=== PATIENT | male | born 1955 | race African-American/Black ===

== ENCOUNTER 2017-11-09 07:22 | Emergency (ER) | payer MEDICARE ==
--- NOTE | 2017-11-09 07:58 | ER Document Report ---
ED Medical Screen (RME) - General Chief Complaint: Neck Problem Stated Complaint: BACK PAIN Time Seen by Provider: 11/09/17 07:45 Mode of Arrival: Ambulatory Information source: Patient Notes: Patient presents to the emergency department with multiple complaints to include back pain tingling in his left jaw right-sided chest pain and nausea. Reports he has a history of neck pain from past surgery. Reports chest pain is new. Also complains of feeling dizzy. Denies history of cardiac disease but has history of high blood pressure. - Related Data Allergies/Adverse Reactions: aspirin Allergy (Verified 11/09/17 07:26) NSAIDS (Non-Steroidal Anti-Inflamma Adverse Reaction (Verified 11/09/17 07:26) Physical Exam - Vital signs Vitals: Temp Pulse Resp BP Pulse Ox 97.6 F 68 20 137/79 H 100 11/09/17 07:29 11/09/17 07:29 11/09/17 07:29 11/09/17 07:29 11/09/17 07:29 Course - Vital Signs Vital signs: Temp Pulse Resp BP Pulse Ox 97.6 F 68 20 137/79 H 100 11/09/17 07:29 11/09/17 07:29 11/09/17 07:29 11/09/17 07:29 11/09/17 07:29
--- NOTE | 2017-11-09 08:23 | RADIOLOGY REPORT (SQ) ---
EXAM DESCRIPTION: CHEST 2 VIEWS COMPLETED DATE/TIME: 11/09/2017 8:08 am REASON FOR STUDY: chest pain COMPARISON: None. EXAM PARAMETERS: NUMBER OF VIEWS: two views TECHNIQUE: Digital Frontal and Lateral radiographic views of the chest acquired. RADIATION DOSE: NA LIMITATIONS: none FINDINGS: LUNGS AND PLEURA: Lungs are hyperlucent from obstructive disease. There is chronic appearing volume loss and bronchiectasis along the right middle lobe. An old thorac otomy defect is present over the posterior right upper 6th rib. No pleural effusions. No pneumothorax. MEDIASTINUM AND HILAR STRUCTURES: No masses or contour abnormalities. HEART AND VASCULAR STRUCTURES: Heart normal size. No evidence for failure. BONES: Osteopenic without thoracic compression deformity. Lower cervical fusion plate HARDWARE: None in the chest. OTHER: No other significant finding. IMPRESSION: Evidence of prior right thoracotomy. Chronic appearing bronchiectasis in the right middle lobe Obstructive lung disease without acute infiltrates TECHNICAL DOCUMENTATION: JOB ID: [id number] [employer]- All Rights Reserved Reading location - IP/workstation name: [email or web address]
[2017-11-09 08:30] LABS: ABSOLUTE EOSINOPHILS # (AUTO) 0.2 10^3/uL (0.0-0.6); ABSOLUTE MONOCYTES (AUTO) 0.3 10^3/uL (0.1-1.4); ABSOLUTE NEUT (AUTO) 2.2 10^3/uL (1.7-8.2); BASOPHILS % (AUTO) 0.4 % (0-2); EOSINOPHILS % (AUTO) 4.8 % (0-6); HEMATOCRIT 41.6 % (37.9-51.0); HEMOGLOBIN 14.4 g/dL (13.5-17.0); LYMPHOCYTES % (AUTO) 42.3 % (13-45); MEAN CORPUSCULAR HEMOGLOBIN 31.4 pg (27.0-33.4); MEAN CORPUSCULAR HGB CONC 34.5 g/dL (32.0-36.0); MEAN CORPUSCULAR VOLUME 91 fl (80-97); MONOCYTES % (AUTO) 6.8 % (3-13); PLATELET COUNT 268 10^3/uL (150-450); RED BLOOD COUNT 4.56 10^6/uL (4.35-5.55); RED CELL DISTRIBUTION WIDTH 12.7 % (11.5-14.0); SEGMENTED NEUTROPHILS % (AUTO) 45.7 % (42-78); TOTAL CELLS COUNTED % (AUTO) 100 %; WHITE BLOOD COUNT 4.8 10^3/uL (4.0-10.5)
[2017-11-09 08:53] LABS: ALANINE AMINOTRANSFERASE 23 U/L (21-72); ALBUMIN 4.5 g/dL (3.5-5.0); ALKALINE PHOSPHATASE 85 U/L (38-126); ANION GAP 10 (5-19); ASPARTATE AMINO TRANSFERASE 14 U/L (17-59); BILIRUBIN,DIRECT 0.3 mg/dL (0.0-0.4); BILIRUBIN,TOTAL 0.4 mg/dL (0.2-1.3); BLOOD UREA NITROGEN 15 mg/dL (7-20); CALCIUM 10.5 mg/dL (8.4-10.2); CARBON DIOXIDE 31 mmol/L (22-30); CHLORIDE 104 mmol/L (98-107); CREATINE KINASE 99 U/L (55-170); GLUCOSE 109 mg/dL (75-110); SODIUM 145.2 mmol/L (137-145); TOTAL PROTEIN 7.8 g/dL (6.3-8.2)
[2017-11-09 09:00] LABS: CREATINE KINASE MB < 0.22 ng/mL (<4.55); TROPONIN I < 0.012 ng/mL
--- NOTE | 2017-11-09 09:41 | EKG REPORT ---
SEVERITY:- ABNORMAL ECG - SINUS RHYTHM VENTRICULAR PREMATURE COMPLEX NONSPECIFIC INTRAVENTRICULAR CONDUCTION DELAY : Confirmed by: John Hanna 09-Nov-2017 09:39:50
[2017-11-09] MEDS ORDERED: HYDROCODONE/ACETAMINOPHEN 5-325 MG TABLET PO ONE (12:42)
[2017-11-09] MEDS ORDERED: CYCLOBENZAPRINE HCL 10 MG TABLET PO ONE (12:42)
[2017-11-09] MEDS ORDERED: LIDOCAINE 5% (700 MG) TRANSDERMAL ADH..PATCH TP ONE (12:43)
--- NOTE | 2017-11-09 13:55 | ER Document Report ---
ED General - General Chief Complaint: Neck Problem Stated Complaint: BACK PAIN Time Seen by Provider: 11/09/17 07:45 Mode of Arrival: Ambulatory Information source: Patient Notes: Patient presents complaining of chronic neck pain due to a cervical procedure performed 8 years ago. Patient states the pain radiates into the right upper chest area. Patient states he has had this pain chronically for the past 6 months although states that worsened over the past 2-1/2 weeks. Patient denies any fever, nausea or vomiting. Patient does report chronic cough but attributes this to his cough from smoking. - HPI Onset: Other - 6 months Onset/Duration: Worse Quality of pain: Sharp Pain Level: 4 Associated symptoms: Chest pain, Nonproductive cough. denies: Productive cough , Diarrhea, Nausea, Vomiting, Shortness of breath, Sweating Exacerbated by: Denies Relieved by: Denies Similar symptoms previously: Yes Recently seen / treated by doctor: No - Related Data Allergies/Adverse Reactions: aspirin Allergy (Verified 11/09/17 07:26) NSAIDS (Non-Steroidal Anti-Inflamma Adverse Reaction (Verified 11/09/17 07:26) Past Medical History - General Information source: Patient - Social History Smoking Status: Current Every Day Smoker Smoking Education Provided: Yes Frequency of alcohol use: None Drug Abuse: None Occupation: None Lives with: Family Family History: Reviewed & Not Pertinent Patient has suicidal ideation: No Patient has homicidal ideation: No - Past Medical History Cardiac Medical History: Reports: Hx Hypercholesterolemia, Hx Hypertension Renal/ Medical History: Denies: Hx Peritoneal Dialysis Malignancy Medical History: Reports Hx Lung Cancer GI Medical History: Reports: Hx Ulcer Musculoskeltal Medical History: Reports Hx Arthritis - Chronic neck pain Past Surgical History: Reports: Hx Orthopedic Surgery Review of Systems - Review of Systems Constitutional: No symptoms reported. denies: Fever, Recent illness EENT: No symptoms reported Cardiovascular: Chest pain. denies: Dyspnea, Syncope, Dizziness Respiratory: Cough Gastrointestinal: No symptoms reported. denies: Abdominal pain, Nausea, Vomiting Genitourinary: No symptoms reported Male Genitourinary: No symptoms reported Musculoskeletal: Neck pain - Chronic lateral neck tenderness. denies: Back pain Skin: No symptoms reported Hematologic/Lymphatic: No symptoms reported Neurological/Psychological: No symptoms reported. denies: Lost consciousness, Headaches Physical Exam - Vital signs Vitals: Temp Pulse Resp BP Pulse Ox 97.6 F 68 20 137/79 H 100 06/21/18 07:29 11/09/17 07:29 11/09/17 07:29 11/09/17 07:29 11/09/17 07:29 - General General appearance: Appears well, Alert In distress: None - HEENT Head: Normocephalic, Atraumatic Eyes: Normal Conjunctiva: Normal Nasal: Normal Mouth/Lips: Normal Mucous membranes: Normal Pharynx: Normal Neck: Supple, Other - Patient with a lateral paraspinal cervical muscle tenderness with spasm, no midline tenderness step-off or deformity. No: Lymphadenopathy - Respiratory Respiratory status: No respiratory distress Chest status: Tender - Right upper anterior chest wall tenderness, Pain on movement Breath sounds: Normal Chest palpation: Tender. No: Ecchymosis - Cardiovascular Rhythm: Regular Heart sounds: S1 appreciated, S2 appreciated Murmur: No Pulses: Normal: Radial - Back Back: Tender - Bilateral trapezius muscle tenderness. No: Vertebra tenderness - Extremities General upper extremity: Normal inspection, Normal strength General lower extremity: Normal inspection, Normal strength - Neurological Neuro grossly intact: Yes Cognition: Normal Napoleon Coma Scale Eye Opening: Spontaneous Napoleon Coma Scale Verbal: Oriented Napoleon Coma Scale Motor: Obeys Commands Sanjana Coma Scale Total: 15 Motor strength normal: LUE, RUE, LLE, RLE - Psychological Associated symptoms: Normal affect, Normal mood - Skin Skin Temperature: Warm Skin Moisture: Dry Skin Color: Normal Course - Re-evaluation Re-evalutation: 11/09/17 Patient does report some pain improvement after medications as well as topical patch. Patient will be given a refill of his cholesterol blood pressure medications to bridge until he can see a primary care provider as patient did have his empty bottles here with him. Patient advised that he may need to follow-up with pain management for further evaluation of his chronic neck pain. The patient has atypical chest pain as the patient's chest pain is not suggestive of pulmonary embolus, cardiac ischemia, aortic dissection, or other serious etiology. Given the extremely low risk of these diagnoses for the test in evaluation for these possibilities does not appear to be indicated at this time. Patient has been instructed to return if the symptoms worsen or change in any way. - Vital Signs Vital signs: Temp Pulse Resp BP Pulse Ox 97.9 F 52 L 20 142/74 H 100 11/09/17 14:09 11/09/17 14:09 11/09/17 07:29 11/09/17 14:09 11/09/17 14:09 - Laboratory Result Diagrams: 11/09/17 08:15 11/09/17 08:15 Laboratory results interpreted by me: 11/09/17 08:15 Sodium 145.2 H Carbon Dioxide 31 H Calcium 10.5 H AST 14 L 11/09/17 18:54 Labs- Entire Visit 11/09/17 11/09/17 11/09/17 08:15 08:15 08:15 WBC 4.8 RBC 4.56 Hgb 14.4 Hct 41.6 MCV 91 MCH 31.4 MCHC 34.5 RDW 12.7 Plt Count 268 Seg Neutrophils % 45.7 Lymphocytes % 42.3 Monocytes % 6.8 Eosinophils % 4.8 Basophils % 0.4 Absolute Neutrophils 2.2 Absolute Lymphocytes 2.0 Absolute Monocytes 0.3 Absolute Eosinophils 0.2 Absolute Basophils 0.0 Sodium 145.2 H Potassium 4.0 Chloride 104 Carbon Dioxide 31 H Anion Gap 10 BUN 15 Creatinine 1.21 Est GFR ( Amer) > 60 Est GFR (Non-Af Amer) > 60 Glucose 109 Calcium 10.5 H Total Bilirubin 0.4 Direct Bilirubin 0.3 Neonat Total Bilirubin Not Reportable Neonat Direct Bilirubin Not Reportable Neonat Indirect Bili Not Reportable AST 14 L ALT 23 Alkaline Phosphatase 85 Creatine Kinase 99 CK-MB (CK-2) < 0.22 Troponin I < 0.012 Total Protein 7.8 Albumin 4.5 11/09/17 13:05 WBC RBC Hgb Hct MCV MCH MCHC RDW Plt Count Seg Neutrophils % Lymphocytes % Monocytes % Eosinophils % Basophils % Absolute Neutrophils Absolute Lymphocytes Absolute Monocytes Absolute Eosinophils Absolute Basophils Sodium Potassium Chloride Carbon Dioxide Anion Gap BUN Creatinine Est GFR ( Amer) Est GFR (Non-Af Amer) Glucose Calcium Total Bilirubin Direct Bilirubin Neonat Total Bilirubin Neonat Direct Bilirubin Neonat Indirect Bili AST ALT Alkaline Phosphatase Creatine Kinase CK-MB (CK-2) Troponin I < 0.012 Total Protein Albumin - Diagnostic Test Radiology reviewed: Reports reviewed Discharge - Discharge Clinical Impression: Cervical radicular pain, Chronic chest pain, History of hypertension Condition: Stable Disposition: HOME, SELF-CARE Instructions: Chest Pain of Unclear Cause ([facility]), Radiculopathy ([facility]) Additional Instructions: Return immediately for any new or worsening symptoms Followup with your primary care provider, call tomorrow to make a followup appointment Follow-up with a cap blocker for further evaluation, call today for an appointment Prescriptions: Amlodipine Besylate 10 mg PO DAILY #30 tab Atorvastatin Calcium 40 mg PO DAILY #30 tablet Cyclobenzaprine HCl [Flexeril 10 mg Tablet] 10 mg PO TID PRN #15 tablet PRN Reason: Hydrocodone/Acetaminophen [[place] 5-325 mg Tablet] 1 tab PO Q6 PRN #20 tablet PRN Reason: Lisinopril/Hydrochlorothiazide [Lisinopril-Hctz 20-12.5 mg Tab] 1 each PO DAILY #30 tablet Forms: Smoking Cessation Education Referrals: JULIAN VASQUES MD [ACTIVE STAFF] - Follow up as needed [facility] [Provider Group] - Follow up as needed
[2017-11-09 14:12] VITALS: BP 142/74
== END 2017-11-09 14:20 | disposition home or self-care (01) ==
LOC: ER 07:22
DX: R07.9 Chest pain, unspecified (principal); G89.29 Other chronic pain; M54.12 Radiculopathy, cervical region; I10 Essential (primary) hypertension; M54.2 Cervicalgia; R05 Cough; Z98.890 Other specified postprocedural states; F17.200 Nicotine dependence, unspecified, uncomplicated
CPT/HCPCS: 93005; 99284; 36415; 82553; 82550; 85025; 80053; 84484; 71046; 93010; A9270 ×2

== ENCOUNTER 2019-03-20 19:13 | Emergency (ER) | payer OTHER, MEDICARE ==
[2019-03-20] MEDS ORDERED: ACETAMINOPHEN 325 MG TABLET PO ONE (20:17)
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
[2019-03-21 00:57] VITALS: BP 135/70
== END 2019-03-21 00:52 | disposition home or self-care (01) ==
LOC: ER 19:13
DX: M54.5 Low back pain (principal); V49.40XA Driver injured in collision with unspecified motor vehicles in traffic accident, initial encounter; M47.9 Spondylosis, unspecified; F17.200 Nicotine dependence, unspecified, uncomplicated; I10 Essential (primary) hypertension; Z85.118 Personal history of other malignant neoplasm of bronchus and lung
CPT/HCPCS: 72110; A9270; 99283

== ENCOUNTER 2019-04-27 12:51 | Emergency (ER) | payer OTHER, MEDICARE ==
[2019-04-27] MEDS ORDERED: LIDOCAINE 5% (700 MG) TRANSDERMAL ADH..PATCH TP ONE ×2 (13:11→15:26)
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
--- NOTE | 2019-04-27 14:25 | RADIOLOGY REPORT (SQ) ---
EXAM DESCRIPTION: CT CERVICAL SPINE WITHOUT COMPLETED DATE/TIME: 04/27/2019 1:36 pm REASON FOR STUDY: neck pain, hx. cervical spine surgery COMPARISON: None. TECHNIQUE: Axial images acquired through the cervical spine without intravenous contrast. Images re viewed with lung, soft tissue and bone windows. Reconstructed coronal and sagittal MPR images review ed. Images stored on PACS. All CT scanners at this facility use dose modulation, iterative reconstruction, and/or weight based d osing when appropriate to reduce radiation dose to as low as reasonably achievable (ALARA). [facility]: Dose Right [facility]: CareDose [facility]: Dose Right [facility]: Teradose 4D [facility]: [employer] RADIATION DOSE: CT Rad equipment meets quality standard of care and radiation dose reduction techniq ues were employed. CTDIvol: 19.6 mGy. DLP: 415 mGy-cm. mGy. LIMITATIONS: None. FINDINGS: ALIGNMENT: Reversal of the lordotic curve. MINERALIZATION: Normal. VERTEBRAL BODIES: No fractures or dislocation. DISCS: Multilevel disc space narrowing with osteophytes. FACETS, LATERAL MASSES, POSTERIOR ELEMENTS: Facet arthropathy. No fractures. No dislocation. No ac cheesh-na findings. HARDWARE: Anterior fusion C5-6, C6-7. VISUALIZED RIBS: No fractures. LUNG APICES AND SOFT TISSUES: No significant or acute findings. OTHER: No other significant finding. IMPRESSION: CHRONIC DEGENERATIVE CHANGES. NO ACUTE FINDINGS. TECHNICAL DOCUMENTATION: JOB ID: [id number] Quality ID # [id number]: Final reports with documentation of one or more dose reduction techniques (e.g., Au tomated exposure control, adjustment of the mA and/or kV according to patient size, use of iterative reconstruction technique) 2010 [employer]- All Rights Reserved Reading location - IP/workstation name: [email or web address]
--- NOTE | 2019-04-27 14:30 | RADIOLOGY REPORT (SQ) ---
EXAM DESCRIPTION: CT LUMBAR SPINE WITHOUT COMPLETED DATE/TIME: 04/27/2019 1:36 pm REASON FOR STUDY: neck pain, negative xray continued pain COMPARISON: Lumbar spine x-ray 03/20/2019 TECHNIQUE: Axial images acquired through the lumbar spine without intravenous contrast. Images revie wed with lung, soft tissue and bone windows. Reconstructed coronal and sagittal MPR images reviewed. Images stored on PACS. All CT scanners at this facility use dose modulation, iterative reconstruction, and/or weight based d osing when appropriate to reduce radiation dose to as low as reasonably achievable (ALARA). [facility]: Dose Right [facility]: CareDose [facility]: Dose Right [facility]: Teradose 4D [facility]: [employer] RADIATION DOSE: mGy. LIMITATIONS: The superior aspect of L1 is excluded from the field of view. FINDINGS: SOFT TISSUES: No soft tissue swelling. SEGMENTATION: Normal. No transitional anatomy. ALIGNMENT: Mild retrolisthesis of L2 on L3. Mild levoscoliosis of the lumbar spine. VERTEBRAL BODIES: No acute fracture at the visualized lumbar spine. The superior aspect of L1 is exc luded from the [id number]. DISCS: Multilevel degenerative disc disease and osteophytosis with vacuum disc phenomenon at L3-L4, L 4-L5 and L5-S1. PEDICLES, TRANSVERSE PROCESSES: No acute fracture or dislocation. FACETS, POSTERIOR ELEMENTS: No acute fracture or dislocation. Multilevel facet arthropathy. HARDWARE: None in the spine. VISUALIZED RIBS: No fractures. IMPRESSION: The superior aspect of L1 is excluded from the [id number] ; no acute fracture at the visualized lumbar spine. Multilevel degenerative changes. TECHNICAL DOCUMENTATION: JOB ID: [id number] OK-[id number] Quality ID # [id number]: Final reports with documentation of one or more dose reduction techniques (e.g., Au tomated exposure control, adjustment of the mA and/or kV according to patient size, use of iterative reconstruction technique) 2010 [employer] All Rights Reserved Reading location - IP/workstation name: [email or web address]
[2019-04-27 15:36] VITALS: BP 154/64
== END 2019-04-27 15:35 | disposition home or self-care (01) ==
LOC: ER 12:51
DX: M54.2 Cervicalgia (principal); M54.5 Low back pain; M54.9 Dorsalgia, unspecified; V87.7XXD Person injured in collision between other specified motor vehicles (traffic), subsequent encounter; Z98.890 Other specified postprocedural states; J44.9 Chronic obstructive pulmonary disease, unspecified; I10 Essential (primary) hypertension
CPT/HCPCS: 72125; 72131; 99283

== ENCOUNTER 2019-05-15 00:44 | Emergency (ER) | payer MEDICARE, OTHER ==
[2019-05-15 02:11] LABS: APPEARANCE,URINE CLEAR; BILIRUBIN,URINE NEGATIVE (NEGATIVE); COLOR,URINE YELLOW; GLUCOSE, URINE NEGATIVE (NEGATIVE); KETONES,URINE NEGATIVE (NEGATIVE); LEUKOCYTE ESTERASE,URINE NEGATIVE (NEGATIVE); NITRITE,URINE NEGATIVE (NEGATIVE); PROTEIN,URINE NEGATIVE (NEGATIVE); URINE SPECIFIC GRAVITY 1.017
[2019-05-15 02:22] LABS: ALBUMIN 4.4 g/dL (3.5-5.0); ALKALINE PHOSPHATASE 104 U/L (38-126); ANION GAP 11 (5-19); ASPARTATE AMINO TRANSFERASE 20 U/L (17-59); BILIRUBIN,DIRECT 0.2 mg/dL (0.0-0.4); BILIRUBIN,TOTAL 0.6 mg/dL (0.2-1.3); BLOOD UREA NITROGEN 12 mg/dL (7-20); CALCIUM 10.1 mg/dL (8.4-10.2); CARBON DIOXIDE 27 mmol/L (22-30); CHLORIDE 106 mmol/L (98-107); GLUCOSE 113 mg/dL (75-110); POTASSIUM 3.6 mmol/L (3.6-5.0); TOTAL PROTEIN 7.9 g/dL (6.3-8.2)
--- NOTE | 2019-05-15 02:28 | RADIOLOGY REPORT (SQ) ---
EXAM DESCRIPTION: XR CHEST 1 VIEW COMPLETED DATE/TME: 05/15/2019 01:02 CLINICAL HISTORY: 64 years, Male, SOB COMPARISON: 11/09/2017 chest NUMBER OF VIEWS: 1 TECHNIQUE: Portable chest LIMITATIONS: None. FINDINGS: Heart size is normal. Postsurgical change of the cervical spine. Underlying emphysema with scarring in the right lung base. No pneumothorax. Postsurgical changes of the right hemithorax. Areas of bronchiectasis and minimal airspace opacity in the right lung base. IMPRESSION: Postsurgical changes of the right hemithorax. Chronic appearing bronchiectasis right lung base with superimposed airspace opacities, for which pneumonia is considered copyright 2010 [employer]- All Rights Reserved
[2019-05-15 03:55] VITALS: BP 154/94
--- NOTE | 2019-05-15 20:10 | EKG REPORT ---
SEVERITY:- ABNORMAL ECG - SINUS RHYTHM VENTRICULAR PREMATURE COMPLEX LEFT ATRIAL ABNORMALITY BORDERLINE PROLONGED QT INTERVAL : Confirmed by: Izabel Ford MD 15-May-2019 20:09:07
== END 2019-05-15 06:58 | disposition left against medical advice (07) ==
LOC: ER 00:44
DX: Z53.21 Procedure and treatment not carried out due to patient leaving prior to being seen by health care provider (principal)
CPT/HCPCS: 36415; 71045; 80053; 81001; 93005; 93010

== ENCOUNTER 2020-01-12 10:23 | Emergency (ER) | payer MEDICARE, OTHER ==
--- NOTE | 2020-01-12 10:34 | ER Document Report ---
ED Medical Screen (RME) - General Chief Complaint: Shortness Of Breath Stated Complaint: SHORTNESS OF BREATH/CHEST PAIN Time Seen by Provider: 01/12/20 10:28 Primary Care Provider: CHICHI CARLIN MD [Primary Care Provider] - Follow up as needed Mode of Arrival: Ambulatory Information source: Patient Notes: 64-year-old male patient with history of COPD presenting to the emergency department chest pain and shortness of breath. Patient reports left-sided chest pain started yesterday after he reached down to put his mask down. He states the pain went away after a while but returned this morning and is worse. He reports associated shortness of breath that is worse than his baseline. He denies any cough, congestion, fever, chills, nausea, vomiting or diarrhea. He states the pain feels like a sharp stabbing pain. He denies any history of [place]. Lung sounds are clear and equal bilaterally. Reproducible chest pain with deep palpation. I have greeted and performed a rapid initial assessment of this patient. A comprehensive ED assessment and evaluation of the patient, analysis of test results and completion of the medical decision making process will be conducted by additional ED providers. I have specifically instructed the patient or family members with the patient to immediately return to any nursing staff should anything change in the patient's condition or with their chief complaint. TRAVEL OUTSIDE OF THE [place] IN LAST 30 DAYS: No - Related Data Allergies/Adverse Reactions: aspirin Allergy (Verified 05/15/19 00:58) NSAIDS (Non-Steroidal Anti-Inflamma Adverse Reaction (Verified 05/15/19 00:58) Past Medical History - Past Medical History Cardiac Medical History: Reports: Hx Hypercholesterolemia, Hx Hypertension Pulmonary Medical History: Reports: Hx COPD Renal/ Medical History: Denies: Hx Peritoneal Dialysis Malignancy Medical History: Reports Hx Lung Cancer GI Medical History: Reports: Hx Ulcer Musculoskeltal Medical History: Reports Hx Arthritis - Chronic neck pain Past Surgical History: Reports: Hx Orthopedic Surgery Doctor's Discharge - Discharge Referrals: CHICHI CARLIN MD [Primary Care Provider] - Follow up as needed
[2020-01-12 11:03] LABS: ABSOLUTE BASOPHILS # (AUTO) 0.1 10^3/uL (0.0-0.2); ABSOLUTE EOSINOPHILS # (AUTO) 0.2 10^3/uL (0.0-0.6); ABSOLUTE LYMPHOCYTES (AUTO) 1.5 10^3/uL (0.5-4.7); ABSOLUTE MONOCYTES (AUTO) 0.4 10^3/uL (0.1-1.4); ABSOLUTE NEUT (AUTO) 3.3 10^3/uL (1.7-8.2); BASOPHILS % (AUTO) 1.2 % (0-2); EOSINOPHILS % (AUTO) 3.1 % (0-6); HEMATOCRIT 40.6 % (37.9-51.0); HEMOGLOBIN 13.7 g/dL (13.5-17.0); LYMPHOCYTES % (AUTO) 28.4 % (13-45); MEAN CORPUSCULAR HGB CONC 33.8 g/dL (32.0-36.0); MEAN CORPUSCULAR VOLUME 92 fl (80-97); MONOCYTES % (AUTO) 6.8 % (3-13); PLATELET COUNT 313 10^3/uL (150-450); RED BLOOD COUNT 4.43 10^6/uL (4.35-5.55); RED CELL DISTRIBUTION WIDTH 13.6 % (11.5-14.0); SEGMENTED NEUTROPHILS % (AUTO) 60.5 % (42-78); TOTAL CELLS COUNTED % (AUTO) 100 %; WHITE BLOOD COUNT 5.4 10^3/uL (4.0-10.5)
--- NOTE | 2020-01-12 11:12 | RADIOLOGY REPORT (SQ) ---
EXAM DESCRIPTION: CHEST SINGLE VIEW IMAGES COMPLETED DATE/TIME: 01/12/2020 9:55 am REASON FOR STUDY: chest pain/sob COMPARISON: 05/15/2019 EXAM PARAMETERS: NUMBER OF VIEWS: One view. TECHNIQUE: Single frontal radiographic view of the chest acquired. RADIATION DOSE: NA LIMITATIONS: None. FINDINGS: LUNGS AND PLEURA: No opacities, masses or pneumothorax. No pleural effusion. MEDIASTINUM AND HILAR STRUCTURES: No masses. Contour normal. HEART AND VASCULAR STRUCTURES: Heart normal in size. Normal vasculature. BONES: No acute findings. HARDWARE: None in the chest. OTHER: No other significant finding. IMPRESSION: NO ACUTE RADIOGRAPHIC FINDING IN THE CHEST. TECHNICAL DOCUMENTATION: JOB ID: [id number] 2010 [employer]- All Rights Reserved Reading location - IP/workstation name: [email or web address]
[2020-01-12 11:26] LABS: ALBUMIN 4.5 g/dL (3.5-5.0); ALKALINE PHOSPHATASE 116 U/L (38-126); ANION GAP 7 (5-19); ASPARTATE AMINO TRANSFERASE 19 U/L (17-59); BILIRUBIN,TOTAL 0.4 mg/dL (0.2-1.3); BLOOD UREA NITROGEN 16 mg/dL (7-20); CARBON DIOXIDE 27 mmol/L (22-30); CHLORIDE 108 mmol/L (98-107); GLUCOSE 113 mg/dL (75-110); POTASSIUM 4.2 mmol/L (3.6-5.0); TOTAL PROTEIN 7.8 g/dL (6.3-8.2)
[2020-01-12] MEDS ORDERED: MAG HYDROX/AL HYDROX/SIMETH SUSP 30 ML UDCUP PO ONE (12:00)
[2020-01-12] MEDS ORDERED: LIDOCAINE 2% VISCOUS SOLN 15 ML UDCUP PO ONE (12:00)
[2020-01-12] MEDS ORDERED: METOCLOPRAMIDE HCL ORAL SOLN 10 MG/10 ML UDCUP PO ONE (12:00)
[2020-01-12] MEDS ORDERED: IPRATROPIUM/ALBUTEROL 0.5-2.5 MG/3 ML AMPUL NEB ONE (12:03)
--- NOTE | 2020-01-12 12:03 | ER Document Report ---
ED Cardiac - General Chief Complaint: Chest Pain Stated Complaint: SHORTNESS OF BREATH/CHEST PAIN Time Seen by Provider: 01/12/20 10:28 Primary Care Provider: CHICHI CARLIN MD [Primary Care Provider] - Follow up in 3-5 days Mode of Arrival: Ambulatory Notes: Patient is a 64-year-old male who presents emergency department with a chief complaint of chest pain. Patient states that his chest pain started yesterday and then went away on its own and this morning, around 5:00 in the morning he ended up having a second episode of chest pain. Describes his pain as a stabbing feeling. States that he also feels short of breath. TRAVEL OUTSIDE OF THE [place] IN LAST 30 DAYS: No - Related Data Allergies/Adverse Reactions: aspirin Allergy (Verified 05/15/19 00:58) NSAIDS (Non-Steroidal Anti-Inflamma Adverse Reaction (Verified 05/15/19 00:58) Past Medical History - General Information source: Patient - Social History Smoking Status: Current Every Day Smoker Chew tobacco use (# tins/day): No Frequency of alcohol use: None Drug Abuse: None Family History: Reviewed & Not Pertinent Patient has homicidal ideation: No - Past Medical History Cardiac Medical History: Reports: Hx Hypercholesterolemia, Hx Hypertension Pulmonary Medical History: Reports: Hx COPD Renal/ Medical History: Denies: Hx Peritoneal Dialysis Malignancy Medical History: Reports Hx Lung Cancer GI Medical History: Reports: Hx Ulcer Musculoskeletal Medical History: Reports Hx Arthritis - Chronic neck pain Past Surgical History: Reports: Hx Orthopedic Surgery Review of Systems - Review of Systems Notes: REVIEW OF SYSTEMS: CONSTITUTIONAL : Denies recent illness. Denies recent unintentional weight loss. Denies fever, chills, or sweats. EENT: Denies eye, ear, throat, or mouth pain, discharge, or symptoms. Denies nasal or sinus congestion. CARDIOVASCULAR: See HPI. RESPIRATORY: See HPI. GASTROINTESTINAL: Denies nausea, vomiting, and diarrhea. Denies abdominal pain. Denies constipation. GENITOURINARY: Denies difficulty urinating, burning, blood in urine, urgency or frequency. MUSCULOSKELETAL: Denies neck and back pain. Denies joint pain or swelling. SKIN: Denies rash, itchiness, or lesions HEMATOLOGIC : Denies easy bruising or bleeding. LYMPHATIC: Denies swollen, painful, enlarged glands. NEUROLOGICAL: Denies no numbness or tingling denies weakness. Denies headache. Denies altered mental status. Denies alteration in speech. PSYCHIATRIC: Denies stress, anxiety, alteration in sleep patterns, or depression. All other systems reviewed and negative. Physical Exam - Vital signs Vitals: Temp Pulse Resp BP Pulse Ox 98.4 F 74 18 154/91 H 96 01/12/20 10:32 01/12/20 10:32 01/12/20 10:32 01/12/20 10:32 01/12/20 10:32 - Notes Notes: PHYSICAL EXAMINATION: GENERAL: Appears well, healthy, well-nourished, no acute distress. HEAD: Normocephalic, atraumatic. EYES: PERRL, conjunctiva normal, all extraocular movements intact, sclera nonicteric ENT: Moist mucous membranes. NECK: Supple, no noticeable swelling, redness, rash. Normal range of motion. LUNGS: Diminished breath sounds in all lung ramos. CARDIOVASCULAR: S1-S2, regular rate, regular rhythm. Radial pulses 2+, normal. ABDOMEN: Normoactive bowel sounds. Soft, nontender, no guarding, no rebound tenderness, and no masses palpated. EXTREMITIES: Normal strength and range of motion, no pitting or edema. No cyanosis. NEUROLOGICAL: Moves all extremities upon command. Strength 5/5 in all extremities. PSYCH: Normal mood, normal affect. SKIN: Warm, dry. No rash, lesions, ulcerations noted. Normal skin turgor. Course - Re-evaluation Re-evalutation: 01/12/20 13:43 Patient states that he does feel somewhat better. At this time, I have a low s uspicion for myocardial infarction. Patient's lung sounds are now wheezy, but he is now moving air. Patient presents with a mild exacerbation of their baseline COPD. Diminished breath sounds at time of presentation but vitals do not show significant hypoxemia or tachypnea. No retractions. Patient did clinically improve after receiving nebulizers here in the emergency department. Chest x-ray without evidence of an acute pneumonia. Laboratories do not show acute kidney injury or significant leukocytosis. Patient able to ambulate without any respiratory distress. Based on patient's overall reassuring assessment, I believe they are stable for outpatient management with steroids. Patient has an inhaler at home. I do not suspect an acute alternative pathology at this time based on history and exam including acute pulmonary embolus, ACS, pneumothorax, or aortic dissection. At this time will discharge with return precautions and follow-up recommendations. Verbal discharge instructions given a the bedside and opportunity for questions given. Medication warnings reviewed. Patient is in agreement with this plan and has verbalized understanding of return precautions and the need for primary care follow-up in the next 24-72 hours. - Vital Signs Vital signs: Temp Pulse Resp BP Pulse Ox 98.2 F 80 18 147/87 H 97 01/12/20 13:58 01/12/20 13:58 01/12/20 13:58 01/12/20 13:58 01/12/20 13:58 - Laboratory Result Diagrams: 01/12/20 10:43 01/12/20 10:43 Laboratory results interpreted by me: 01/12/20 01/12/20 10:43 10:43 Chloride 108 H Glucose 113 H NT-Pro-B Natriuret Pep 236 H - EKG Interpretation by Me Additional EKG results interpreted by me: 01/12/20 12:05 Sinus rhythm. Rate 66. MN 172; QRS 92; QT 396; QTc 415. No ST elevation or depression noted. No acute change from previous EKG on 05/15/2018. Discharge - Discharge Clinical Impression: COPD exacerbation, Shortness of breath Chest pain Qualifiers: Chest pain type: unspecified Qualified Code(s): R07.9 - Chest pain, unspecified Condition: Stable Disposition: HOME, SELF-CARE Additional Instructions: You were seen today in the emergency department for chest pain and shortness of breath. Your shortness of breath and chest pain is due to your COPD. Take 2 puffs of your albuterol inhaler every 4-6 hours for the next 2 to 3 days. You are also being started on prednisone. I also highly recommend that you stop smoking. Cut back 1 cigarette a week. Follow-up with your primary care provider in regards to this visit. Prescriptions: Sucralfate [Carafate 1 gm Tablet] 1 gm PO ACHS #20 tablet Prednisone [Deltasone 20 mg Tablet] 3 tab PO DAILY 5 Days #15 tablet Forms: Return to Work Referrals: CHICHI CARLIN MD [Primary Care Provider] - Follow up in 3-5 days
[2020-01-12] MEDS ORDERED: SUCRALFATE 1 GM TABLET PO ONE (13:44)
[2020-01-12 14:00] VITALS: BP 147/87
--- NOTE | 2020-01-12 20:26 | EKG REPORT ---
SEVERITY:- BORDERLINE ECG - SINUS RHYTHM PROBABLE LEFT ATRIAL ABNORMALITY BORDERLINE T ABNORMALITIES, ANT-LAT LEADS : Confirmed by: John Hanna 12-Jan-2020 20:25:26
== END 2020-01-12 13:58 | disposition home or self-care (01) ==
LOC: ER 10:23
DX: J44.1 Chronic obstructive pulmonary disease with (acute) exacerbation (principal); R07.9 Chest pain, unspecified; R06.02 Shortness of breath; F17.200 Nicotine dependence, unspecified, uncomplicated; I10 Essential (primary) hypertension; Z85.118 Personal history of other malignant neoplasm of bronchus and lung; Z88.8 Allergy status to other drugs, medicaments and biological substances; Z79.899 Other long term (current) drug therapy
CPT/HCPCS: 93005; 94640; 99285; 36415; 83690; 85025; 80053; 84484; 83880; 71045; 93010; J3490; A9270 ×3

== ENCOUNTER 2020-03-30 23:08 | Emergency (ER) | payer MEDICARE ==
[2020-03-31] MEDS ORDERED: METOCLOPRAMIDE HCL INJ/PF 10 MG/2 ML SDV IV ONE (00:51)
[2020-03-31] MEDS ORDERED: NORMAL SALINE 1000 ML 1,000 ML IV ONE ×2 (00:51→11:48)
[2020-03-31] MEDS ORDERED: HYDROMORPHONE HCL INJ/PF 2 MG/ML AMPULE IV ONE (00:52)
--- NOTE | 2020-03-31 00:54 | ER Document Report ---
ED Medical Screen (RME) - General Chief Complaint: Flank Pain Stated Complaint: ABDOMINAL PAIN Time Seen by Provider: 03/31/20 00:50 Primary Care Provider: CHICHI CARLIN MD [Primary Care Provider] - Follow up as needed Mode of Arrival: Ambulatory Information source: Patient Notes: 64-year-old -[place] male coming in today with a diffuse abdominal pain, abdominal distention, and now vomiting. Symptoms started this morning. No previous problems with his belly. Fevers or shaking chills. No history of constipation. Patient reports that he is a "lung cancer survivor". Not currently battling cancer. General exam: Uncomfortable appearing Abdomen distended, diffusely tender I have greeted and performed a rapid initial assessment of this patient. A comprehensive ED assessment and evaluation of the patient, analysis of test results and completion of the medical decision making process will be conducted by additional ED providers. TRAVEL OUTSIDE OF THE [place] IN LAST 30 DAYS: No - Related Data Allergies/Adverse Reactions: aspirin Allergy (Verified 05/15/19 00:58) NSAIDS (Non-Steroidal Anti-Inflamma Adverse Reaction (Verified 05/15/19 00:58) Past Medical History - Past Medical History Cardiac Medical History: Reports: Hx Hypercholesterolemia, Hx Hypertension Pulmonary Medical History: Reports: Hx COPD Renal/ Medical History: Denies: Hx Peritoneal Dialysis Malignancy Medical History: Reports Hx Lung Cancer GI Medical History: Reports: Hx Ulcer Musculoskeltal Medical History: Reports Hx Arthritis - Chronic neck pain Past Surgical History: Reports: Hx Orthopedic Surgery Physical Exam - Vital signs Vitals: Temp Pulse Resp BP Pulse Ox 97.6 F 81 18 122/70 96 03/31/20 00:11 03/31/20 00:11 03/31/20 00:11 03/31/20 00:11 03/31/20 00:11 Course - Vital Signs Vital signs: Temp Pulse Resp BP Pulse Ox 97.6 F 81 18 122/70 96 03/31/20 00:11 03/31/20 00:11 03/31/20 00:11 03/31/20 00:11 03/31/20 00:11 Doctor's Discharge - Discharge Referrals: CHICHI CARLIN MD [Primary Care Provider] - Follow up as needed
[2020-03-31 01:32] LABS: ABSOLUTE BASOPHILS # (AUTO) 0.1 10^3/uL (0.0-0.2); ABSOLUTE LYMPHOCYTES (AUTO) 0.9 10^3/uL (0.5-4.7); ABSOLUTE MONOCYTES (AUTO) 0.4 10^3/uL (0.1-1.4); ABSOLUTE NEUT (AUTO) 6.4 10^3/uL (1.7-8.2); EOSINOPHILS % (AUTO) 0.3 % (0-6); HEMATOCRIT 41.1 % (37.9-51.0); HEMOGLOBIN 14.6 g/dL (13.5-17.0); LYMPHOCYTES % (AUTO) 11.8 % (13-45); MEAN CORPUSCULAR HEMOGLOBIN 32.1 pg (27.0-33.4); MEAN CORPUSCULAR HGB CONC 35.7 g/dL (32.0-36.0); MEAN CORPUSCULAR VOLUME 90 fl (80-97); MONOCYTES % (AUTO) 4.8 % (3-13); PLATELET COUNT 306 10^3/uL (150-450); RED BLOOD COUNT 4.56 10^6/uL (4.35-5.55); RED CELL DISTRIBUTION WIDTH 13.6 % (11.5-14.0); SEGMENTED NEUTROPHILS % (AUTO) 82.1 % (42-78); TOTAL CELLS COUNTED % (AUTO) 100 %; WHITE BLOOD COUNT 7.8 10^3/uL (4.0-10.5)
[2020-03-31 02:00] LABS: ALBUMIN 4.9 g/dL (3.5-5.0); ALKALINE PHOSPHATASE 222 U/L (38-126); ANION GAP 11 (5-19); ASPARTATE AMINO TRANSFERASE 253 U/L (17-59); BILIRUBIN,DIRECT 0.7 mg/dL (0.0-0.4); BILIRUBIN,TOTAL 1.1 mg/dL (0.2-1.3); BLOOD UREA NITROGEN 15 mg/dL (7-20); CALCIUM 10.5 mg/dL (8.4-10.2); CARBON DIOXIDE 30 mmol/L (22-30); CHLORIDE 102 mmol/L (98-107); GLUCOSE 160 mg/dL (75-110); POTASSIUM 4.3 mmol/L (3.6-5.0); TOTAL PROTEIN 8.5 g/dL (6.3-8.2)
[2020-03-31 02:14] LABS: APPEARANCE,URINE CLEAR; BILIRUBIN,URINE NEGATIVE (NEGATIVE); COLOR,URINE YELLOW; GLUCOSE, URINE NEGATIVE (NEGATIVE); KETONES,URINE NEGATIVE (NEGATIVE); PROTEIN,URINE NEGATIVE (NEGATIVE); URINE SPECIFIC GRAVITY 1.019
--- NOTE | 2020-03-31 10:25 | RADIOLOGY REPORT (SQ) ---
EXAM DESCRIPTION: CT ABD/PELVIS WITH IV ONLY IMAGES COMPLETED DATE/TIME: 03/31/2020 9:49 am REASON FOR STUDY: abdominal distension COMPARISON: None. TECHNIQUE: CT scan of the abdomen and pelvis performed using helical scanning technique with dynamic intravenous contrast injection. No oral contrast. Images reviewed with lung, soft tissue, and bone windows. Reconstructed coronal and sagittal MPR images reviewed. Delayed images for evaluation of the urinary system also acquired. All images stored on PACS. All CT scanners at this facility use dose modulation, iterative reconstruction, and/or weight based d osing when appropriate to reduce radiation dose to as low as reasonably achievable (ALARA). [facility]: Dose Right [facility]: CareDose [facility]: Dose Right [facility]: Teradose 4D [facility]: [employer] CONTRAST TYPE AND DOSE: contrast/concentration: Isovue 350.00 mmol/ml; Total Contrast Delivered: 100 .0 ml; Total Saline Delivered: 70.0 ml RENAL FUNCTION: GFR > 60. RADIATION DOSE: CT Rad equipment meets quality standard of care and radiation dose reduction techniq ues were employed. CTDIvol: 9.1 - 12.8 mGy. DLP: 1251 mGy-cm.. LIMITATIONS: None. FINDINGS: LOWER CHEST: No significant findings. No nodules or infiltrates. LIVER: Normal size. Small cyst. No dilated ducts. SPLEEN: Normal size. No focal lesions. PANCREAS: No masses. No significant calcifications. No adjacent inflammation or peripancreatic fluid collections. Pancreatic duct not dilated. GALLBLADDER: No identified stones by CT criteria. No inflammatory changes to suggest cholecystitis. ADRENAL GLANDS: 3.5 cm left adrenal nodule measuring 61 HU. RIGHT KIDNEY AND URETER: No solid masses. No significant calcifications. No hydronephrosis or hyd roureter. LEFT KIDNEY AND URETER: No solid masses. No significant calcifications. No hydronephrosis or hydr oureter. AORTA AND VESSELS: No aneurysm. No dissection. Renal arteries, SMA, celiac without stenosis. RETROPERITONEUM: No retroperitoneal adenopathy, hemorrhage or masses. BOWEL AND PERITONEAL CAVITY: No masses or inflammatory changes. No free fluid or peritoneal masses. APPENDIX: Normal. PELVIS: No mass. No free fluid. Normal bladder. ABDOMINAL WALL: Umbilical hernia containing nondilated small bowel. BONES: No acute findings. OTHER: No other significant finding. IMPRESSION: No acute findings. Incidental left adrenal nodule. TECHNICAL DOCUMENTATION: JOB ID: [id number] Quality ID # [id number]: Final reports with documentation of one or more dose reduction techniques (e.g., Au tomated exposure control, adjustment of the mA and/or kV according to patient size, use of iterative reconstruction technique) 2010 [employer]- All Rights Reserved Reading location - IP/workstation name: [email or web address]
--- NOTE | 2020-03-31 12:49 | RADIOLOGY REPORT (SQ) ---
EXAM DESCRIPTION: U/S ABDOMEN LIMITED W/O DOP IMAGES COMPLETED DATE/TIME: 03/31/2020 12:39 pm REASON FOR STUDY: abd pain, elevated LFT's COMPARISON: None. TECHNIQUE: Dynamic and static grayscale images acquired of the abdomen and recorded on PACS. Additio nal selected color Doppler and spectral images recorded. LIMITATIONS: None. FINDINGS: PANCREAS: No masses. Visualized pancreatic duct normal caliber. LIVER: Increased echogenicity. No masses. LIVER VASCULATURE: Normal directional flow of the main portal vein and hepatic veins. GALLBLADDER: No stones. Normal wall thickness. No pericholecystic fluid. ULTRASOUND-DETECTED PATTERSON'S SIGN: Negative. INTRAHEPATIC DUCTS AND COMMON DUCT: CBD and intrahepatic ducts normal caliber. No filling defects. AORTA: No aneurysm. RIGHT KIDNEY: Normal size, 11 cm. Normal echogenicity. No solid or suspicious masses. No hydronephro sis. No calcifications. PERITONEAL AND RIGHT PLEURAL SPACE: No ascites or effusions. OTHER: No other significant findings. IMPRESSION: Hepatic steatosis. TECHNICAL DOCUMENTATION: JOB ID: [id number] 2010 [employer]- All Rights Reserved Reading location - IP/workstation name: [email or web address]
--- NOTE | 2020-03-31 15:27 | ER Document Report ---
ED GI/ - General Chief Complaint: Abdominal Pain Stated Complaint: ABDOMINAL PAIN Time Seen by Provider: 03/31/20 00:50 Primary Care Provider: CHICHI CARLIN MD [Primary Care Provider] - Follow up as needed Mode of Arrival: Ambulatory Notes: 64-year-old -[place] male coming in today with a diffuse abdominal pain, abdominal distention, and now vomiting. Symptoms started this morning. No previous problems with his belly. Fevers or shaking chills. No history of constipation. Patient reports that he is a "lung cancer survivor". Not currently battling cancer. TRAVEL OUTSIDE OF THE [place] IN LAST 30 DAYS: No - Related Data Allergies/Adverse Reactions: aspirin Allergy (Verified 03/31/20 03:38) NSAIDS (Non-Steroidal Anti-Inflamma Adverse Reaction (Verified 03/31/20 03:38) Past Medical History - General Information source: Patient - Social History Smoking Status: Current Every Day Smoker Frequency of alcohol use: None Drug Abuse: None Family History: Reviewed & Not Pertinent - Past Medical History Cardiac Medical History: Reports: Hx Hypercholesterolemia, Hx Hypertension Pulmonary Medical History: Reports: Hx COPD Renal/ Medical History: Denies: Hx Peritoneal Dialysis Malignancy Medical History: Reports Hx Lung Cancer GI Medical History: Reports: Hx Ulcer Musculoskeletal Medical History: Reports Hx Arthritis - Chronic neck pain Past Surgical History: Reports: Hx Orthopedic Surgery Review of Systems - Review of Systems Gastrointestinal: Abdominal pain, Vomiting -: Yes All other systems reviewed and negative Physical Exam - Vital signs Vitals: Temp Pulse Resp BP Pulse Ox 97.6 F 81 18 122/70 96 03/31/20 00:11 03/31/20 00:11 03/31/20 00:11 03/31/20 00:11 03/31/20 00:11 - Notes Notes: PHYSICAL EXAMINATION: GENERAL: Well-appearing, well-nourished and in no acute distress. HEAD: Atraumatic, normocephalic. EYES: Pupils equal round and reactive to light, extraocular movements intact, s clera anicteric, conjunctiva are normal. ENT: Nares patent, oropharynx clear without exudates. Moist mucous membranes. NECK: Normal range of motion, supple without lymphadenopathy LUNGS: Breath sounds clear to auscultation bilaterally and equal. No wheezes rales or rhonchi. HEART: Regular rate and rhythm without murmurs ABDOMEN: Soft, nondistended abdomen. Mild RUQ tenderness. No guarding, no rebound. No masses appreciated. Musculoskeletal: Normal range of motion, no pitting or edema. No cyanosis. NEUROLOGICAL: Cranial nerves grossly intact. Normal speech, normal gait. Normal sensory, motor exams PSYCH: Normal mood, normal affect. SKIN: Warm, Dry, normal turgor, no rashes or lesions noted. Course - Re-evaluation Re-evalutation: Abdomen/Pelvis CT 03/31/20 00:50 IMPRESSION: No acute findings. Incidental left adrenal nodule. Abdomen Ultrasound 03/31/20 11:47 IMPRESSION: Hepatic steatosis. Patient appears well, has been in ED several hours prior to my assessment of patient. States he feels improved. LTF's elevated, RUQ u/s normal. Will add on hepatitis panel and d/c home as pt reports that he feels fine. Strict ED return precautions. - Vital Signs Vital signs: Temp Pulse Resp BP Pulse Ox 98.1 F 79 18 146/78 H 97 03/31/20 16:11 03/31/20 16:11 03/31/20 16:11 03/31/20 16:11 03/31/20 16:11 - Laboratory Result Diagrams: 03/31/20 01:25 03/31/20 01:25 Laboratory results interpreted by me: 03/31/20 03/31/20 03/31/20 01:25 01:25 01:44 Lymph % (Auto) 11.8 L Seg Neutrophils % 82.1 H Glucose 160 H Calcium 10.5 H Direct Bilirubin 0.7 H AST 253 H ALT 147 H Alkaline Phosphatase 222 H Total Protein 8.5 H Urine Urobilinogen 4.0 H Discharge - Discharge Clinical Impression: Abdominal pain Qualifiers: Abdominal location: generalized Qualified Code(s): R10.84 - Generalized abdominal pain Condition: Stable Disposition: HOME, SELF-CARE Additional Instructions: Your work-up today showed no life-threatening cause of your abdominal pain. Since your abdominal pain has resolved and your work-up is reassuring we have sent you home today. You did have elevated liver function tests in comparison with your most recent visit. A hepatitis panel is pending. This will not come back today. We will call you if there is any abnormality with this. Please return with any new or worsening symptoms to include increased or worsening abdominal pain, development of persistent vomiting, fever or if you have blood in your vomit or stool. Referrals: CHICHI CARLIN MD [Primary Care Provider] - Follow up as needed
[2020-03-31 16:32] VITALS: BP 146/78
[2020-04-01 10:37] LABS: HEPATITS B SURFACE ANTIGEN Negative (Negative)
[2020-04-01 10:46] LABS: HEPATITIS C VIRUS ANTIBODY <0.1 s/co ratio (0.0-0.9)
== END 2020-03-31 16:11 | disposition home or self-care (01) ==
LOC: ER 23:08
DX: R10.84 Generalized abdominal pain (principal); R10.817 Generalized abdominal tenderness; R79.89 Other specified abnormal findings of blood chemistry; R11.10 Vomiting, unspecified; K76.0 Fatty (change of) liver, not elsewhere classified; E27.8 Other specified disorders of adrenal gland; I10 Essential (primary) hypertension; J44.9 Chronic obstructive pulmonary disease, unspecified; F17.200 Nicotine dependence, unspecified, uncomplicated; Z85.118 Personal history of other malignant neoplasm of bronchus and lung; Z88.8 Allergy status to other drugs, medicaments and biological substances
CPT/HCPCS: 99285; 96360; 96361; 36415; 83690; 85025; 80053; 81001; 80074; 76705; 74177; J7030